=== PATIENT | female | born 1995 ===

== ENCOUNTER 2016-06-03 03:22 | Emergency (ER) | payer MEDICAID, OTHER ==
[~2016-06-03] VITALS: Ht 167.6 cm; Wt 78.2 kg
[2016-06-03 03:29] VITALS: BP 117/74; PULSE 98; RESP 20; O2SAT 98
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
[2016-06-03 06:12] VITALS: BP 105/68; PULSE 79; RESP 16; O2SAT 99
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
== END 2016-06-03 06:14 | disposition home or self-care (01) ==
LOC: SED 03:22
DX: S00.90XA Unspecified superficial injury of unspecified part of head, initial encounter (principal); Y04.0XXA Assault by unarmed brawl or fight, initial encounter; W22.8XXA Striking against or struck by other objects, initial encounter; Y92.9 Unspecified place or not applicable; Y93.89 Activity, other specified; Y99.8 Other external cause status; J34.89 Other specified disorders of nose and nasal sinuses

== ENCOUNTER 2016-12-06 20:44 | Emergency (ER) | payer MEDICAID, OTHER ==
[2016-12-06 20:49] VITALS: BP 112/71; PULSE 94; RESP 16; O2SAT 98
--- NOTE | 2016-12-06 21:49 | ED.REPORT ---
HPI-General Illness Date of Service Dec 06, 2016 ED Provider: Domo Krueger MD Patient is a 21 year old female who presents to the ED complaining of vomiting onset 4 days ago. Additional symptoms include rhinorrhea and cough. She denies fever or abdominal pain. She came into the ED with her daughter who presents with similar symptoms. Nursing Notes Stated Complaint: VOMITING,COUGH Chief Complaint: FLU/Cold Symptoms Nursing Notes Reviewed: Yes Allergies: Uncoded Allergies: MUSHROOMS (Allergy, Unknown, 02/15/16) General Time Seen by MD: 21:47 Chief Complaint Vomiting Hx Obtained From: Patient Arrived By: Walk-in Sudden in Onset?: No Onset Occurred: 4 days ago Quality: Painful Severity: Current: Mild Severity: Maximum: Moderate Recent Healthcare: Recent doctor visit Similar Sx Previous: No Past Medical History Past Medical History none reported Past Surgical History Reports: Appendectomy, Tonsillectomy Smoking History Never Smoker Social History Alcohol Use: Denies alcohol use Drug Use: Denies drug use Other Social History: Good social support, Lives with children, Local resident Ambulatory Status Independent Review of Systems Rhinorrhea Full Review of Systems Constitutional: Denies: Fever Respiratory: Reports: Non-productive cough GI: Reports: Nausea, Vomiting, Denies: Abdominal pain Complete sys rev & neg: except as marked. Physical Exam Vital Signs Vital Signs Date Time Temp Pulse Resp B/P Pulse Ox O2 Delivery O2 Flow Rate FiO2 12/06/16 22:13 36.9 89 16 118/72 97 Room Air 12/06/16 20:49 36.9 94 16 112/71 98 Room Air Initial VS: Reviewed Head / Eyes: Atraumatic, Normocephalic Neck: Supple, Full range of motion Abdomen / GI: Soft, Non-tender Extremities: Vascular intact, Neuro intact, No swelling, No tenderness Skin: Warm, Dry, No cyanosis Neurologic: Alert, Oriented, Nonfocal Psychiatric: Mood/affect normal, Behavior normal, Normal thought content General/Constitutional: Awake, Alert ENT: Airway patent, Mucous membranes moist Respiratory / Chest: Atraumatic, Breath sounds NL, Breath sounds = bilat, No respiratory distress Cardiovascular: Heart rate NL, Regular rhythm, Heart sounds NL Re-Eval/Medical Decision Source of Hx: Old records Counseled Regarding: Diagnosis, Lab results, Need for follow-up, When/why to return to ED Discharge & Departure Primary Impression: Upper respiratory tract infection URI type: unspecified viral URI Qualified Code: J06.9 - Acute upper respiratory infection, unspecified Disposition: Home Discharge Condition All VS Reviewed: Yes Condition: Stable Patient Instructions: Upper Respiratory Infection (ED) Additional Instructions: Thank you for entrusting us with your care today. Your examination was reassuring. It appears that you have a viral illness. Schedule an appointment with your primary doctor tomorrow for a recheck in the next few days. Please return to the emergency department for any new or worsening symptoms, including difficulty breathing or a fever of 104 or higher. Referrals: Dante Solo MD (PCP) Scribe Attestation Portions of this note were transcribed by Rena Pelayo. I, Dr. Krueger, personally performed the history, physical exam and medical decision-making; I reviewed and confirmed the accuracy of the information in the transcribed note. copies to: Dante Solo MD, Kirk H MD Dec 06, 2016 21:49 Rena Pelayo Dec 06, 2016 21:58
[2016-12-06 22:13] VITALS: BP 118/72; PULSE 89; RESP 16; O2SAT 97
== END 2016-12-06 22:13 | disposition home or self-care (01) ==
LOC: SED 20:44
DX: J06.9 Acute upper respiratory infection, unspecified (principal); J34.89 Other specified disorders of nose and nasal sinuses; R11.2 Nausea with vomiting, unspecified; Z90.89 Acquired absence of other organs; Z91.018 Allergy to other foods